=== PATIENT | male | born 1985 | race Caucasian/White ===

== ENCOUNTER 2016-10-29 14:02 | Emergency (ER) | payer OTHER ==
[~2016-10-29] VITALS: Ht 180.3 cm; Wt 84.4 kg
--- NOTE | 2016-10-29 14:15 | NUR ---
PATIENT PRESENTS TO ER C/O RIGHT EYE PAIN AND REDNESS SINCE SUNDAY. PATIENT IS A/OX 4. VISUAL ACUITY COMPLETED, 20/20 IN RIGHT EYE. VITALS STABLE. SAFETY MEASURES IN PLACE. AWAITING MD ORDERS.
[2016-10-29 14:16] VITALS: BP 124/77
--- NOTE | 2016-10-29 14:44 | NUR ---
Patient discharged to home in stable condition. Written and verbal after care instructions given. Patient verbalizes understanding of instruction.
== END 2016-10-29 14:47 | disposition home or self-care (01) ==
LOC: ER 14:05
DX: H10.89 Other conjunctivitis (principal)
CPT/HCPCS: A4606; Z7610